=== PATIENT | female | born 1995 | race Caucasian/White ===

== ENCOUNTER 2019-02-02 03:20 | Emergency (ER) | payer MEDICAID, OTHER ==
[~2019-02-02] VITALS: Ht 162.6 cm; Wt 72.6 kg
[2019-02-02] MEDS ORDERED: diphenhydrAMINE 25 MG TAB (BENADRYL) PO ONE (03:45)
[2019-02-02] MEDS ORDERED: predniSONE 20 MG TAB PO ONE (03:45)
--- NOTE | 2019-02-02 03:49 | ED Integumentary General ---
General Chief Complaint: Bite-Animal/Human/Insect Stated Complaint: BUG BITE Nursing Triage Note: insect bite left elbow, red/swollen Source: patient Exam Limitations: no limitations History of Present Illness Date Seen by Provider: Feb 02, 2019 Time Seen by Provider: 03:37 Initial Comments Here with insect bite to the left arm just to the inside of the elbow. Had reddened area, over that and has increased in size until this morning. Onset 24 hours ago. She has used topical Benadryl cream and that has not helped a whole lot. Does have itching and swelling associated with that. Denies other symptoms. Timing/Duration: yesterday, getting worse Severity: moderate Location: extremities Possible Cause: insect bite Modifying Factors: improves with antihistamine Associated Symptoms: edema; No fever, No nasal congestion, No sore throat Allergies and Home Medications Allergies Coded Allergies: Sulfa (Sulfonamide Antibiotics) (Verified Allergy, Unknown, 02/02/19) Home Medications No Active Prescriptions or Reported Meds Patient Home Medication List Home Medication List Reviewed: Yes Review of Systems Review of Systems Constitutional: no symptoms reported EENTM: No nose congestion, No throat pain Respiratory: No cough, No short of breath, No wheezing Cardiovascular: no symptoms reported Skin: see HPI, change in color, lesions Past Srzgnzf-Gvimyn-Frhwqn Hx Past Med/Social Hx: Reviewed Nursing Past Med/Soc Hx Patient Social History Alcohol Use: Denies Use Recreational Drug Use: No Smoking Status: Never a Smoker 2nd Hand Smoke Exposure: No Recent Foreign Travel: No Contact w/Someone Who Travel: No Recent Infectious Disease Expo: No Recent Hopitalizations: No Physical Abuse: No Sexual Abuse: No Mistreated: No Fear: No Immunizations Up To Date Tetanus Booster (TDap): Unknown PED Vaccines UTD: Yes Seasonal Allergies Seasonal Allergies: No Past Medical History Surgeries: Yes (skin graft) Respiratory: No Cardiac: No Neurological: No : No (depo) Reproductive Disorders: No Genitourinary: No Gastrointestinal: No Musculoskeletal: No Endocrine: No HEENT: No Cancer: No Psychosocial: No Integumentary: No Blood Disorders: No Adverse Reaction/Blood Tranf: No Family Medical History Reviewed Nursing Family Hx No Pertinent Family Hx Physical Exam Vital Signs Vital Signs - First Documented 02/02/19 03:25 Temp 98.1 Pulse 93 Resp 18 B/P (MAP) 140/80 (100) Pulse Ox 97 O2 Delivery Room Air Capillary Refill : Less Than 3 Seconds General Appearance: WD/WN, no apparent distress Cardiovascular: regular rate, rhythm, no murmur Respiratory: lungs clear, normal breath sounds Skin: warm/dry Skin Problem Location: upper extremities Skin Problem Character: erythema, lesion, warm, other (6 x 8 cm area of erythema with 1 x 1 cm area of induration centrally without pustule or core) Progress/Results/Core Measures Results/Orders My Orders Orders - ROMMEL PACHECO MD Diphenhydramine Tablet (Benadryl Tablet) (02/02/19 03:45) Prednisone Tablet (Deltasone Tablet) (02/02/19 03:45) Vital Signs/I&O 02/02/19 03:25 Temp 98.1 Pulse 93 Resp 18 B/P (MAP) 140/80 (100) Pulse Ox 97 O2 Delivery Room Air Blood Pressure Mean: 100 Progress Progress Note : Progress Note Seen and evaluated. Prednisone 40 mg by mouth and Benadryl 25 mg by mouth. Discharged home with return precautions. Patient verbalize understanding instructions and agreement with plan. Departure Impression Primary Impression: Insect bites Qualified Codes: S50.362A - Insect bite (nonvenomous) of left elbow, initial encounter; W57.XXXA - Bitten or stung by nonvenomous insect and other nonvenomous arthropods, initial encounter Disposition: 01 HOME, SELF-CARE Condition: Stable Departure-Patient Inst. Decision time for Depature: 03:47 Referrals: [facility] (PCP/Family) Primary Care Physician Patient Instructions: Insect Bites and Stings (DC) Add. Discharge Instructions: All discharge instructions reviewed with patient and/or family. Voiced understanding. You may take Benadryl 25 mg every 6 hours as needed for pain. Alternately you may use topical Benadryl cream to the area. You may also use hydrocortisone cream twice daily to area of concern. You may take ibuprofen 400 mg every 6 hours as needed for pain. You may take Tylenol/acetaminophen 1000 mg every 6 hours as needed for pain. Return for worse pain, increasing redness, fever, breathing problems or other concerns as needed. Scripts No Active Prescriptions or Reported Meds ROMMEL PACHECO MD Feb 02, 2019 03:49
[2019-02-02 03:53] VITALS: BP 140/80
== END 2019-02-02 03:52 | disposition home or self-care (01) ==
LOC: EDUNIT# 03:20 → ER 03:22
DX: S50.362A Insect bite (nonvenomous) of left elbow, initial encounter (principal); Z88.2 Allergy status to sulfonamides; W57.XXXA Bitten or stung by nonvenomous insect and other nonvenomous arthropods, initial encounter
CPT/HCPCS: 99283

== ENCOUNTER 2020-12-02 22:22 | Emergency (ER) | payer SELFPAY ==
[~2020-12-02] VITALS: Ht 63 cm; Wt 99.6 kg
[2020-12-02 22:41] LABS: BILIRUBIN,URINE NEGATIVE (NEGATIVE); CLARITY,URINE CLEAR; COLOR,URINE YELLOW; GLUCOSE, URINE (UA) NEGATIVE (NEGATIVE); KETONES,URINE TRACE (NEGATIVE); LEUKOCYTE ESTERASE ,URINE TRACE (NEGATIVE); NITRITE,URINE NEGATIVE (NEGATIVE); PH,URINE 7.5 (5-9); PROTEIN,URINE TRACE (NEGATIVE)
--- NOTE | 2020-12-02 23:02 | ED Back Pain ---
General Chief Complaint: Back Problems Stated Complaint: BACK PAIN Nursing Triage Note: PATIENT REPORTS SHE HAS HAD A UTI OFF AND ON FOR THE LAST SEVEN MONTHS AND HAS BEEN ON MULTIPLE ABX THAT HAVEN'T HELPED. CONTINUES TO HAVE BACK PAIN Source of Information: Patient Exam Limitations: No Limitations History of Present Illness Date Seen by Provider: Dec 02, 2020 Time Seen by Provider: 22:45 Initial Comments Patient to the ER by private conveyance with her significant other chief complaint that for 1 day she has had worsening bilateral back pain, dysuria hematuria. She is on her menses. She has a history of multiple UTIs over the past several years more than 5 a year. She does not follow with urologist. No known history of kidney stones. Her back is not hurting one side worse than the other. No fevers or chills. No vomiting. Allergies and Home Medications Allergies Coded Allergies: Sulfa (Sulfonamide Antibiotics) (Verified Allergy, Unknown, 02/02/19) Home Medications Cefdinir 300 Mg Capsule, 300 MG PO BID Prescribed by: ANDREA BROWNE on 12/03/20 0048 Patient Home Medication List Home Medication List Reviewed: Yes Review of Systems Constitutional: No chills, No fever EENTM: No ear discharge, No ear pain, No blurred vision Respiratory: No cough, No phlegm Cardiovascular: No chest pain, No palpitations Gastrointestinal: No abdominal pain, No nausea Genitourinary: dysuria, frequency, hematuria : No Musculoskeletal: back pain; No joint pain All Other Systems Reviewed Negative Unless Noted: Yes Past Riunmfg-Gcdqzd-Qwghjg Hx Patient Social History Tobacco Use?: No Use of E-Cig and/or Vaping dev: Yes E-Cig or Vaping type used: Nicotine Use of E-Cig and/or Vaping Ori: Current Everyday User Substance use?: No Substance frequency: Once in a while Pt feels they are or have been: No Immunizations Up To Date Tetanus Booster (TDap): Unknown PED Vaccines UTD: Yes Influenza Vaccine Up-to-Date: Yes; Up-to-Date Seasonal Allergies Seasonal Allergies: No Past Medical History Surgeries: Yes (skin graft) Respiratory: No Cardiac: No Neurological: No Reproductive Disorders: No Genitourinary: No Gastrointestinal: No Musculoskeletal: No Endocrine: No HEENT: No Cancer: No Psychosocial: No Integumentary: No Blood Disorders: No Adverse Reaction/Blood Tranf: No Family Medical History No Pertinent Family Hx Physical Exam Vital Signs Vital Signs - First Documented 12/02/20 12/03/20 22:56 01:02 Temp 38.2 Pulse 136 Resp 22 B/P (MAP) 163/86 (111) Pulse Ox 98 O2 Delivery Room Air Capillary Refill : Less Than 3 Seconds Height, Weight, BMI Height: 5'4" Weight: 160lbs. oz. 72.141933hz; 250.00 BMI Method:Stated General Appearance: WD/WN, Mild Distress HEENT: PERRL/EOMI, Pharynx Normal; No Moist Mucous Membranes Neck: Full Range of Motion, Normal Inspection Cardiovascular: Regular Rate, Rhythm, No Edema, Tachycardia (130) Respiratory: Lungs Clear, Normal Breath Sounds, No Accessory Muscle Use, No Respiratory Distress Gastrointestinal: Normal Bowel Sounds, Non Tender, Soft Back: CVA Tenderness (L), CVA Tenderness (R) Extremity: Normal Capillary Refill, Normal Inspection, No Pedal Edema (Sy mmetric bilateral) Neurologic/Psychiatric: Alert, Oriented x3, No Motor/Sensory Deficits Skin: Normal Color, Warm/Dry Progress/Results/Core Measures Results/Orders Lab Results Laboratory Tests Test 12/02/20 22:34 12/02/20 23:34 Range/Units Urine Color YELLOW Urine Clarity CLEAR Urine pH 7.5 5-9 Urine Specific [place] 1.015 L 1.016-1.022 Urine Protein TRACE H NEGATIVE Urine Glucose (UA) NEGATIVE NEGATIVE Urine Ketones TRACE H NEGATIVE Urine Nitrite NEGATIVE NEGATIVE Urine Bilirubin NEGATIVE NEGATIVE Urine Urobilinogen 0.2 < = 1.0 MG/DL Urine Leukocyte Esterase TRACE H NEGATIVE Urine RBC (Auto) 3+ H NEGATIVE Urine RBC 10-25 H /HPF Urine WBC RARE /HPF Urine Squamous Epithelial Cells 5-10 /HPF Urine Crystals NONE /LPF Urine Bacteria TRACE /HPF Urine Casts NONE /LPF Urine Mucus LARGE H /LPF Urine Culture Indicated NO Urine Test NEGATIVE NEGATIVE White Blood Count 11.4 H 4.3-11.0 10^3/uL Red Blood Count 4.32 3.80-5.11 10^6/uL Hemoglobin 12.5 11.5-16.0 g/dL Hematocrit 39 35-52 % Mean Corpuscular Volume 91 80-99 fL Mean Corpuscular Hemoglobin 29 25-34 pg Mean Corpuscular Hemoglobin Concent 32 32-36 g/dL Red Cell Distribution Width 14.7 H 10.0-14.5 % Platelet Count 263 130-400 10^3/uL Mean Platelet Volume 10.7 9.0-12.2 fL Immature Granulocyte % (Auto) 1 % Neutrophils (%) (Auto) 86 H 42-75 % Lymphocytes (%) (Auto) 5 L 12-44 % Monocytes (%) (Auto) 8 0-12 % Eosinophils (%) (Auto) 0 0-10 % Basophils (%) (Auto) 0 0-10 % Neutrophils # (Auto) 9.8 H 1.8-7.8 10^3/uL Lymphocytes # (Auto) 0.6 L 1.0-4.0 10^3/uL Monocytes # (Auto) 0.9 0.0-1.0 10^3/uL Eosinophils # (Auto) 0.0 0.0-0.3 10^3/uL Basophils # (Auto) 0.0 0.0-0.1 10^3/uL Immature Granulocyte # (Auto) 0.1 0.0-0.1 10^3/uL Neutrophils % (Manual) 91 % Lymphocytes % (Manual) 6 % Monocytes % (Manual) 3 % Blood Morphology Comment NORMAL Sodium Level 137 135-145 MMOL/L Potassium Level 3.7 3.6-5.0 MMOL/L Chloride Level 101 98-107 MMOL/L Carbon Dioxide Level 22 21-32 MMOL/L Anion Gap 14 5-14 MMOL/L Blood Urea Nitrogen 15 7-18 MG/DL Creatinine 1.07 0.60-1.30 MG/DL Estimat Glomerular Filtration Rate > 60 BUN/Creatinine Ratio 14 Glucose Level 93 70-105 MG/DL Lactic Acid Level 0.86 0.50-2.00 MMOL/L Calcium Level 9.3 8.5-10.1 MG/DL Corrected Calcium 8.9 8.5-10.1 MG/DL Total Bilirubin 0.3 0.1-1.0 MG/DL Aspartate Amino Transf (AST/SGOT) 19 5-34 U/L Alanine Aminotransferase (ALT/SGPT) 24 0-55 U/L Alkaline Phosphatase 64 40-136 U/L Total Protein 7.7 6.4-8.2 GM/DL Albumin 4.5 3.2-4.5 GM/DL My Orders Orders - PAVAN,ANDREA J Ua Culture If Indicated (12/02/20 22:24) Hcg,Qualitative Urine (12/02/20 23:03) Ns Iv 1000 Ml (Sodium Chloride 0.9%) (12/02/20 23:15) Ceftriaxone (Rocephin) (12/02/20 23:16) Ceftriaxone (Rocephin) (12/02/20 23:16) Ed Iv/Invasive Line Start (12/02/20 23:16) Ns Iv 1000 Ml (Sodium Chloride 0.9%) (12/02/20 23:30) Ceftriaxone (Rocephin) (12/02/20 23:30) Ketorolac Injection (Toradol Injection) (12/02/20 23:30) Cbc With Automated Diff (12/02/20 23:16) Comprehensive Metabolic Panel (12/02/20 23:16) Blood Culture (12/02/20 23:16) Urine Culture (12/02/20 23:16) Ed Iv/Invasive Line Start (12/02/20 23:16) Ed Iv/Invasive Line Start (12/02/20 23:16) Vital Signs Adult Sepsis Patie Q15M (12/02/20 23:16) Remove Rings In Anticipation O (12/02/20 23:16) Lactic Acid Analyzer (12/02/20 23:16) Ns Iv 1000 Ml (Sodium Chloride 0.9%) (12/02/20 23:30) Water (Sterile) For Injection (Sterile W (12/02/20 23:17) Manual Differential (12/02/20 23:34) Ct Abd/Pelvis Wo(Kidney Stone) (12/03/20 00:01) Medications Given in ED Current Medications Medications Dose Ordered Sig/Cristian Route Start Time Stop Time Status Last Admin Dose Admin Ceftriaxone Sodium 1000 mg/ Sterile Water 10 ml @ 200 mls/hr ONCE ONCE IV 12/02/20 23:30 12/02/20 23:32 DC 12/03/20 00:07 200 MLS/HR Ketorolac Tromethamine 30 mg ONCE ONCE IVP 12/02/20 23:30 12/02/20 23:31 DC 12/02/20 23:36 30 MG Vital Signs/I&O 12/02/20 12/03/20 22:56 01:02 Temp 38.2 37.0 Pulse 136 109 Resp 22 16 B/P (MAP) 163/86 (111) 127/53 (111) Pulse Ox 98 O2 Delivery Room Air Room Air Blood Pressure Mean: 111 Progress Progress Note #1: Time: 23:38 Progress Note Initiate a septic work-up with Rocephin for presumed pyelonephritis. Tachycardia and 100.8 fever today. We will give her 2 L which is greater than 20 mL/kg based on an ideal body weight adjusted at [address] looking for stones. She says she is known to Dr. Mcrae and had a urethral dilatation 5 years ago. We will suggest she go back for reexamination with him. I believe she is on doxycycline p.o. daily for acne unknown dose. Progress Note #2: Time: 00:44 Progress Note Patient's vital signs and symptoms have significantly improved after IV fluids and Toradol. She is no longer having any pain. We did offer her a stay in the hospital for her presumed pyelonephritis/sepsis. The patient declined. We will get her set up with some outpatient IM Rocephin and a short course of cefdinir after that. Return precautions were given. Diagnostic Imaging Diagonstic Imaging: CT Plain Films/CT/US/NM/MRI: abdomen, pelvis Comments No evidence of hydronephrosis, hydroureter or obstruction of the ureter. No stones. [facility], [place] NAME: JAMIE HERNANDEZ [facility] REC#: [id number] PT STATUS: REG ER : 1995 PHYSICIAN: ANDREA BROWNE MD ADMIT DATE: 12/02/20/ER Signed Date of Exam:12/03/20 CT ABD/PELVIS WO(KIDNEY STONE) PROCEDURE: CT urinary tract, rule out kidney stone. TECHNIQUE: Multiple contiguous axial images were obtained through the abdomen and pelvis without the use of intravenous contrast. Auto Exposure Controls were utilized during the CT exam to meet ALARA standards for radiation dose reduction. INDICATION: Flank pain. COMPARISON: 05/01/2014. FINDINGS: The heart is unremarkable. The lung bases are clear. The liver, spleen, pancreas, adrenal glands, and kidneys have a normal noncontrast CT appearance. There is no pathologically enlarged mesenteric or retroperitoneal adenopathy. The bowel loops are nondilated. The appendix is visualized in the right lower quadrant mesentery normal appearance. There is no free fluid or free air. No acute osseous abnormalities. The urinary bladder is decompressed. A cystic focus is seen in the right adnexa measuring 5.4 x 4.6 cm. There is no free air, loculated collection, or adenopathy in the pelvis. IMPRESSION: 1. No evidence of renal calculi or hydronephrosis. 2. Likely ovarian cyst in the right adnexa measuring 5.4 x 4.6 cm. Recommend correlation with patient's symptoms and if indicated further evaluation with pelvic ultrasound. Dictated by: Dictated on workstation # [id number] Dict: 12/03/2049 Trans: 12/03/2052 [facility] [id number] Interpreted by: KARLOS RAE DO Electronically signed by: KARLOS RAE DO 12/03/2052 Reviewed: Reviewed [facility] Study, Reviewed by Pa Departure Impression Primary Impression: Urinary tract infection Qualified Codes: N30.01 - Acute cystitis with hematuria Additional Impression: Sepsis Qualified Codes: A41.9 - Sepsis, unspecified organism Disposition: HOME, SELF-CARE Condition: Stable Departure-Patient Inst. Decision time for Depature: 00:45 Referrals: [facility] [place] Primary Care Physician Patient Instructions: Kidney Infection (DC) Add. Discharge Instructions: Drink lots of fluids. Tylenol and ibuprofen as necessary for pain and fever. Promptly return to the ER if your symptoms are not improving. 12/03/2020 get a shot of Rocephin outpatient afternoon by calling the number on the top of your outpatient order sheet. Start cefdinir 1 capsule twice a day for the next 5 days on 12/04/2020. Probiotics 1 capsule twice a day for the next week to prevent diarrhea. Stop taking the doxycycline for your skin until your symptoms farida. Call Dr. Lopez, urology to request outpatient consultation for your continued urinary tract infection symptoms. All discharge instructions reviewed with patient and/or family. Voiced understanding. Scripts Cefdinir (Cefdinir) 300 Mg Capsule 300 MG PO BID for 5 Days, #10 CAP 0 Refills Prov: ANDREA BROWNE 12/03/20 ANDREA BROWNE Dec 02, 2020 23:02
[2020-12-02 23:05] LABS: BACTERIA,URINE TRACE /HPF; WBC,URINE RARE /HPF
[2020-12-02] MEDS ORDERED: NS IV 1000 ML 1,000 ML ONE (23:15)
[2020-12-02] MEDS ORDERED: cefTRIAXone 1,000 MG VIAL ONE ×2 (23:16)
[2020-12-02] MEDS ORDERED: WATER (STERILE) FOR INJECTION 10 ML ONE (23:17)
[2020-12-02] MEDS ORDERED: KETOROLAC 30 MG/ML VIAL IVP ONE (23:30)
[2020-12-02] MEDS ORDERED: NS IV 1000 ML 1,000 ML IV SCH ×2 (23:30)
[2020-12-02] MEDS ORDERED: cefTRIAXone 1,000 MG in WATER (STERILE) FOR INJECTION 10 ML IV ONE (23:30)
[2020-12-02 23:50] LABS: BASOPHILS % (AUTO) 0 % (0-10); EOSINOPHILS % (AUTO) 0 % (0-10); HEMATOCRIT 39 % (35-52); HEMOGLOBIN 12.5 g/dL (11.5-16.0); LYMPHOCYTES # (AUTO) 0.6 10^3/uL (1.0-4.0); LYMPHOCYTES % (AUTO) 5 % (12-44); MEAN CORPUSCULAR HEMOGLOBIN 29 pg (25-34); MEAN CORPUSCULAR HGB CONC 32 g/dL (32-36); MEAN CORPUSCULAR VOLUME 91 fL (80-99); MEAN PLATELET VOLUME 10.7 fL (9.0-12.2); MONOCYTES # (AUTO) 0.9 10^3/uL (0.0-1.0); MONOCYTES % (AUTO) 8 % (0-12); NEUTROPHILS # (AUTO) 9.8 10^3/uL (1.8-7.8); NEUTROPHILS % (AUTO) 86 % (42-75); PLATELET COUNT 263 10^3/uL (130-400); WHITE BLOOD COUNT 11.4 10^3/uL (4.3-11.0)
[2020-12-02 23:56] LABS: ALBUMIN 4.5 GM/DL (3.2-4.5)
[2020-12-02 23:57] LABS: CHLORIDE 101 MMOL/L (98-107); POTASSIUM 3.7 MMOL/L (3.6-5.0); SODIUM 137 MMOL/L (135-145)
[2020-12-02 23:58] LABS: CALCIUM 9.3 MG/DL (8.5-10.1)
[2020-12-02 23:59] LABS: GLUCOSE 93 MG/DL (70-105); TOTAL PROTEIN 7.7 GM/DL (6.4-8.2)
[2020-12-03] LABS: CARBON DIOXIDE 22 MMOL/L (21-32)
[2020-12-03 00:01] LABS: BILIRUBIN,TOTAL 0.3 MG/DL (0.1-1.0)
[2020-12-03 00:02] LABS: ALKALINE PHOSPHATASE 64 U/L (40-136)
[2020-12-03 00:03] LABS: CREATININE SERUM 1.07 MG/DL (0.60-1.30); GFR ESTIMATED > 60
[2020-12-03 00:04] LABS: BUN/CREATININE RATIO 14
[2020-12-03 00:05] LABS: ALANINE AMINOTRANSFERASE 24 U/L (0-55)
[2020-12-03 00:19] LABS: LYMPHOCYTES % (MANUAL) 6 %; MONOCYTES % (MANUAL) 3 %; NEUTROPHILS % (MANUAL) 91 %; RBC MORPH NORMAL
[2020-12-03] MEDS ORDERED: CEFD300C3 PO (00:48)
--- NOTE | 2020-12-03 00:55 | Diagnostic Imaging Report ---
PROCEDURE: CT urinary tract, rule out kidney stone. TECHNIQUE: Multiple contiguous axial images were obtained through the abdomen and pelvis without the use of intravenous contrast. Auto Exposure Controls were utilized during the CT exam to meet ALARA standards for radiation dose reduction. INDICATION: Flank pain. COMPARISON: 05/01/2014. FINDINGS: The heart is unremarkable. The lung bases are clear. The liver, spleen, pancreas, adrenal glands, and kidneys have a normal noncontrast CT appearance. There is no pathologically enlarged mesenteric or retroperitoneal adenopathy. The bowel loops are nondilated. The appendix is visualized in the right lower quadrant mesentery normal appearance. There is no free fluid or free air. No acute osseous abnormalities. The urinary bladder is decompressed. A cystic focus is seen in the right adnexa measuring 5.4 x 4.6 cm. There is no free air, loculated collection, or adenopathy in the pelvis. IMPRESSION: 1. No evidence of renal calculi or hydronephrosis. 2. Likely ovarian cyst in the right adnexa measuring 5.4 x 4.6 cm. Recommend correlation with patient's symptoms and if indicated further evaluation with pelvic ultrasound. Dictated by: Dictated on workstation # [id number]
[2020-12-03 01:02] VITALS: BP 127/53
== END 2020-12-03 01:02 | disposition home or self-care (01) ==
LOC: EDUNIT# 22:22 → ER 22:24
DX: N39.0 Urinary tract infection, site not specified (principal); A41.9 Sepsis, unspecified organism; F17.200 Nicotine dependence, unspecified, uncomplicated
CPT/HCPCS: 36415; 74176; 80053; 81000; 83605; 84703; 85007; 85027; 87040; 87088

== ENCOUNTER 2020-12-03 15:39 | Outpatient (CLI) | payer SELFPAY ==
[~2020-12-03] VITALS: Ht 162.6 cm; Wt 99.6 kg
[~2020-12-03 15:39] MED LIST: CEFD300C3 PO
[2020-12-03] MEDS ORDERED: LIDOCAINE 1% INJ 20 ML 20 ML VIAL ONE (15:54)
[2020-12-03] MEDS ORDERED: cefTRIAXone 1,000 MG VIAL ONE (15:54)
[2020-12-03 16:08] VITALS: BP 147/102
== END 2020-12-03 16:08 | disposition home or self-care (01) ==
LOC: SDC 15:39
PROVIDERS: ATTEND Emergency Medicine
DX: N12 Tubulo-interstitial nephritis, not specified as acute or chronic (principal)
CPT/HCPCS: 96372

== ENCOUNTER → 2022-11-29 | Outpatient (CLI) | payer OTHER ==
--- NOTE | 2022-11-29 12:31 | Diagnostic Imaging Report ---
INDICATION: Supervision of normal . Anatomy survey. TECHNIQUE: Multiple real-time grayscale images were obtained over the gravid uterus. COMPARISON: None FINDINGS: A single live intrauterine gestation is visualized in variable presentation. heart tones measure 150 bpm. The placenta is anterior and not low lying. The cervix is closed and measures 5.3 cm. The JOSE is normal measuring 17 cm. The kidneys, bladder, stomach, brain, four-chamber heart, three-vessel cord, spine, and cord insertion are visualized and have a normal appearance. Biometrical measurements are as follows: Biparietal 4.89 cm, age 20 weeks 6 days. Head circumference 18.48 cm, age 20 weeks 6 days. Abdominal circumference 15.87 cm, age 21 weeks 0 days. Femur length 3.45 cm, age 21 weeks 0 days. Sonographic estimate age: 21 weeks 0 days. Sonographic estimated date of delivery: 04/11/2023. Estimated Weight: 386 gm (+/- 57 gm). LMP percentile: 86%. heart rate: 150 beats per minute. number: 1 of 1. IMPRESSION: 1. Single live intrauterine gestation measuring 21 weeks 0 days with an estimated due date of 04/11/2023. These are within range with the clinical dates. Recommend follow-up as indicated. 2. Unremarkable anatomy scan. Dictated by: Dictated on workstation # [id number]
== END ==
LOC: RAD 09:43
PROVIDERS: ATTEND Nurse Practitioner Women's Health
DX: Z34.92 Encounter for supervision of normal pregnancy, unspecified, second trimester (principal); Z3A.21 21 weeks gestation of pregnancy
CPT/HCPCS: 76805

== ENCOUNTER → 2023-03-20 | Outpatient (CLI) | payer OTHER ==
[~2023-03-20] VITALS: Ht 165.1 cm; Wt 112.0 kg
[~2023-03-20] MED LIST changes: +EPINEPHrine INJECTION 1 MG/ML AMP IM PRN; +HYDROCORTISONE INJECTION 100 MG/2 ML VIAL IV PRN; +IRON DEXTRAN 1,000 MG/NS 250 ML IVPB IV ONE; +IRON DEXTRAN 25 MG/NS 6.25 ML TOTAL VOLUME IV ONE; +RT-ALBUTEROL SULF 2.5 MG/3 ML PRE-MIX VIAL IH PRN; +diphenhydrAMINE INJ 50 MG/ML VIAL IV PRN
[2023-03-20 12:07] VITALS: BP 129/79
[2023-03-20 13:33] VITALS: BP 129/79
== END ==
LOC: SDC 11:45
PROVIDERS: ATTEND Obstetrics & Gynecology
DX: D64.9 Anemia, unspecified (principal)
CPT/HCPCS: 96365

== ENCOUNTER 2023-04-23 19:00 | Inpatient (IN) | payer OTHER ==
[~2023-04-23] VITALS: Ht 162.6 cm; Wt 115.7 kg
[~2023-04-23 19:00] MED LIST changes: -EPINEPHrine INJECTION 1 MG/ML AMP IM PRN; -HYDROCORTISONE INJECTION 100 MG/2 ML VIAL IV PRN; -IRON DEXTRAN 1,000 MG/NS 250 ML IVPB IV ONE; -IRON DEXTRAN 25 MG/NS 6.25 ML TOTAL VOLUME IV ONE; -RT-ALBUTEROL SULF 2.5 MG/3 ML PRE-MIX VIAL IH PRN; -diphenhydrAMINE INJ 50 MG/ML VIAL IV PRN
--- OUTSIDE RECORDS SUMMARY | 2023-04-23 19:07 | XMS REPORT ---
Author Author [facility] Address Unknown Phone Unavailable Care Team Providers Care Blood Bank Calendar Control Clerk Name Role Phone ROBB WHITE Unavailable PROBLEMS Type Condition ICD9-CM Code ICD33-CH Code Onset Dates Condition Status W/U Status Risk SNOMED Code Notes Problem Major depressive disorder with single episode, remission status unspecified F32.9 confirmed 19352124 Problem BMI 37.0-37.9, adult Z68.37 confirmed [id number] Problem Dysuria R30.0 confirmed [id number] Problem Nausea R11.0 confirmed [id number] ALLERGIES Allergen (clinical drug ingredient) Drug/Non Drug Allergy documented on EMR Reaction Allergy Type Onset Date Status Tetanus Toxoid Adsorbed swelling, redness Drug Allergy Active ENCOUNTERS from 1997 to 2023-04-16 Encounter Location Date Provider Diagnosis [facility] [address] [place] [address] Mar, ROBB WHITE UTI symptoms R39.9 IMMUNIZATIONS Vaccine Route Administration Date Status DTP Unknown September 14, 1998 Administered DTP Unknown 1997 Administered DTP Unknown 1997 Administered PRIVATE PROQUAD (MMR/VARICELLA) SC Subcutaneous October [id number] Administered Hib 4 dose schedule Unknown September 14, 1998 Admini stered Hib 4 dose schedule Unknown 1997 Administ ered Hib 4 dose schedule Unknown 1997 Administ ered infanrix dtap (history) Unknown 1997 Ad ministered OPV Unknown September 14, 1998 Administered Novel [id number], nasal Unknown Mar 25 09 Administered hepatitis b pediatric (history) Unknown 1997 Administered hepatitis b pediatric (history) Unknown Apr 21 997 Administered mmr-II (history) Unknown September 14, 1998 Administe denita polio ipv (history) Unknown 1997 Administ cuco polio ipv (history) Unknown 1997 Administ cuco comvax hib/hep b (history) Unknown 1997 Administered SOCIAL HISTORY Sex Assigned At : Social History Observation Description Sex Assigned At Unknown Alcohol Screen (Audit-C) Question Answer Notes Did you have a drink contain ing alcohol in the past year? Yes Points 5 Interpretation Positive How often did you have 6 or more drinks on one occasion in the past year? Less than monthly (1 point) How many drinks did you have on a typical day when you were drinking in the past year? 3 or 4 (1 point) How often did you have a dri nk containing alcohol in the past year? Two to three times per week (3 points) Sexual History Question Answer Notes Had sex in the past 12 months (vaginal, oral, or anal)? Yes Have you ever had a Sexually transmitted disease ? No with Men only Use protection? No PHQ2 Question Answer Notes In the last 2 weeks, how oft en have you had little interest or pleasure in doing things? Not at all In the last 2 weeks, how oft en have you been feeling down, depressed, or hopeless? Not at all Total PHQ2 Score 0 Tobacco use other than smoking: Question Answer Notes Are you an other tobacco user? Yes REASON FOR REFERRAL No Information VITAL SIGNS Height 64 in Mar, Weight 215.5 lbs Mar, Weight-kg 97.75 kg Mar, Temperature 97.7 degrees Fahrenheit Mar, Heart Rate 93 bpm Mar, Respiratory Rate 20 bpm Mar, Oximetry 100 % Mar, BMI 36.99 kg/m2 Mar, Blood pressure systolic 126 mmHg Mar, Blood pressure diastolic 72 mmHg Mar, MEDICATIONS No Known Medications REASON FOR VISIT possible uti, "gets them often", frequent urination, burning, Azo-started last night [id number] MEDICAL (GENERAL) HISTORY Type Description Date Medical History Depression Medical History 21 weeks Surgical History No know Surgical history Hospitalization History UTI(sepsis) 12/03/19 21 MENTAL STATUS No Information ASSESSMENTS Encounter Date Diagnosis Assessment Notes Treatment Notes Treatment Clinical Notes Mar, UTI symptoms (ICD-10 - R39.9) Mar, Other Medications as directed, supportive care and monitoring, rest as able, push fluids to maintain hydration. Office visit it not improving.Patient verbalized understanding of above instructions. , Urinary Tract Infection (UTI) in Women: Care Instructions material was published PLAN OF TREATMENT Next Appt Details if not improving with PCP or reg follow up Reason: Insurance Providers Payer Name Payer Address Payer Phone Insured Name Patient Relationship to Insured Coverage Start Date Coverage End Date Subscriber Number Group Number [employer] [address] [address] [facility] [id number] [address] Self - patient is the insured [id number] 01 MEDICATIONS ADMINISTERED Medication Instructions Date of Administration Dosag e DEPO PROVERA (150 MG/ML) Jan, 150 mg DEPO PROVERA (150 MG/ML) Jan, 150 mg DEPO PROVERA (150 MG/ML) Feb, 150 mg DEPO PROVERA (150 MG/ML) May, 150 mg DEPO PROVERA (150 MG/ML) Apr, 150 mg DEPO PROVERA (150 MG/ML) Nov, 150 mg DEPO PROVERA (150 MG/ML) Apr, 150 mg DEPO PROVERA (150 MG/ML) Feb, 150 mg DEPO PROVERA (150 MG/ML) Jul, 150 mg DEPO PROVERA (150 MG/ML) Dec, 150 mg DEPO PROVERA (150 MG/ML) Oct, 150 mg DEPO PROVERA (150 MG/ML) Jul, 150 mg DEPO PROVERA (150 MG/ML) Oct, 150 mg DEPO PROVERA (150 MG/ML) Jul, 150 mg
--- OUTSIDE RECORDS SUMMARY | 2023-04-23 19:07 | XMS REPORT ---
Author Author [facility] ter [facility] Address Unknown Phone Unavailable Care Team Providers Care Ice Guard Tester Name Role Phone DOT SANCHEZ Unavailable PROBLEMS Type Condition ICD9-CM Code [id number] Code Onset Dates Condition Status W/U Status Risk SNOMED Code Notes Problem Major depressive disorder with single episode, remission status unspecified F32.9 confirmed [id number] Problem BMI 37.0-37.9, adult Z68.37 confirmed 326568434 Problem Dysuria R30.0 confirmed [id number] Problem Nausea R11.0 confirmed [id number] ALLERGIES Allergen (clinical drug ingredient) Drug/Non Drug Allergy documented on EMR Reaction Allergy Type Onset Date Status Tetanus Toxoid Adsorbed swelling, redness Drug Allergy Active ENCOUNTERS from 1997 to 2023-01-18 Encounter Location Date Provider Diagnosis [facility] [address] [facility] [id number] [address] Jan, DOT SANCHEZ Dysuria R30.0 IMMUNIZATIONS Vaccine Route Administration Date Status Hib 4 dose schedule Unknown 1997 Administ ered DTP Unknown September 14, 1998 Administered DTP Unknown 1997 Administered DTP Unknown 1997 Administered PRIVATE PROQUAD (MMR/VARICELLA) SC Subcutaneous October 262018 Administered Hib 4 dose schedule Unknown September 14, 1998 Admini stered Hib 4 dose schedule Unknown 1997 Administ ered mmr-II (history) Unknown September 14, 1998 Administe red OPV Unknown September 14, 1998 Administered Novel Qbyignbig-[id number], nasal Unknown Mar 25 09 Administered hepatitis b pediatric (history) Unknown 1997 Administered hepatitis b pediatric (history) Unknown Apr 21 997 Administered infanrix dtap (history) Unknown 1997 Ad ministered comvax hib/hep b (history) Unknown 1997 Administered polio ipv (history) Unknown 1997 Administ cuco polio ipv (history) Unknown 1997 Administ ereleif SOCIAL HISTORY Sex Assigned At : Social [...] No Information VITAL SIGNS Height 64 in Jan, Weight 218 lbs Jan, Weight-kg 98.88 kg Jan, Temperature 98 degrees Fahrenheit Jan, Heart Rate 90 bpm Jan, Respiratory Rate 20 bpm Jan, Oximetry 98 % Jan, BMI 37.42 kg/m2 Jan, Blood pressure systolic 130 mmHg Jan, Blood pressure diastolic 68 mmHg Jan, MEDICATIONS No Known Medications REASON FOR VISIT Pt stated she has "bladder pain" "feels like i"m not emptying my bladder".Pt stated she feels like she has uti's more often and is concerned about it. Pt stated that she hasburning at the end of her urine stream. [facility]O MEDICAL (GENERAL) HISTORY Type Description Date Medical History Depression Medical History 21 weeks Surgical History No know Surgical history Hospitalization History UTI(sepsis) 12/03/19 21 MENTAL STATUS No Information ASSESSMENTS Encounter Date Diagnosis Assessment Notes Treatment Notes Treatment Clinical Notes Jan, Dysuria (ICD-10 - R30.0) dysuria is a common symptom of a urinary tract infection or other urinary problems. The bladder may become inflamed. This can cause pain when the bladder fills and empties. You may also feel pain if the tube that carries urine from the bladder to the outside of the body (urethra) gets irritated or infected. Sometimes the pain can be caused by things other than an infection. The urethra can be irritated by soaps, perfumes, or foreign objects in the urethra. Kidney stones can cause pain when they pass through the urethra. The cause may be hard to find. You may need tests. Treatment for painful urination depends on the cause. Follow-up care is a zheng part of your treatment and safety. Be sure to make and go to all appointments, and call your doctor if you are having problems. It's also a good idea to know your test results and keep a list of the medicines you take. Drink extra water for the next day or two. This will help make the urine less concentrated. (If you have kidney, heart, or liver disease and have to limit fluids, talk with your doctor before you increase the amount of fluids you drink.) Avoid drinks that are carbonated or have caffeine. They can irritate the bladder. Urinate often. Try to empty your bladder each time. Urinate right after you have sex. After going to the bathroom, wipe from front to back. Avoid douches, bubble baths, and feminine hygiene sprays. And avoid other feminine hygiene products that have deodorants., Painful Urination (Dysuria): Care Instructions material was published Will send urine for culture and send off for other STIs Jan, Other Medications as prescribed, rest as able, push fluids, call/return if symptoms worsen or do not improve. Pediatric UTI's: Avoid giving little girls bubble-baths or allowing her to sit in soapy bath water for very long. It's ok for her to take a bath in plain water, but she should play in the tub first, and wait until the end of the bath before using soap or shampoo, then get out of the tub as soon as possible. Encourage wiping "[id number]-[id number]-[id number]". Encourage to sit on the toilet with her legs spread wide open, to avoid small amounts of urine becoming trapped between the labia and causing irritation. Push fluids to maintain hydration and flush urinary track. Adult UTI: 1. Avoid bubble baths. Voiding after sexual intercourse for adult females will assist to flush potential bacteria from the urinary tract. Proper bathroom hygein wiping front to bacl. Maintain proper hydration with lots of water daily avoiding sodas as able. Pushing fluids helps to maintain hydration and flush urinary system. Medications as directed, supportive care and monitoring, rest as able, push fluids to maintain hydration. Office visit it not improving. Patient verbalized understanding of above instructions. PLAN OF TREATMENT Treatment Notes Assessment Notes Clinical Notes Dysuria dysuria is a common symptom of a urinary tract infection or other urinary problems. The bladder may become inflamed. This can cause pain when the bladder fills and empties. You may also feel pain if the tube that carries urine from the bladder to the outside of the body (urethra) gets irritated or infected. Sometimes the pain can be caused by things other than an infection. The urethra can be irritated by soaps, perfumes, or foreign objects in the urethra. Kidney stones can cause pain when they pass through the urethra. The cause may be hard to find. You may need tests. Treatment for painful urination depends on the cause. Follow-up care is a zheng part of your treatment and safety. Be sure to make and go to all appointments, and call your doctor if you are having problems. It's also a good idea to know your test results and keep a list of the medicines you take. Drink extra water for the next day or two. This will help make the urine less concentrated. (If you have kidney, heart, or liver disease and have to limit fluids, talk with your doctor before you increase the amount of fluids you drink.) Avoid drinks that are carbonated or have caffeine. They can irritate the bladder. Urinate often. Try to empty your bladder each time. Urinate right after you have sex. After going to the bathroom, wipe from front to back. Avoid douches, bubble baths, and feminine hygiene sprays. And avoid other feminine hygiene products that have deodorants., Painful Urination (Dysuria): Care Instructions material was published Will send urine for culture and send off for other STIs Future Test Test Name Order Date UA LONG DIP (IN HOUSE) 20210203 TEST, URINE (IN HOUSE) 9 HIV Screening (STATE) 20210203 HSV 1/2 IGG (6482) [id number] SYPHILIS (STATE) 34870304 TRICHOMONAS (IN HOUSE) [id number] BACTERIAL VAGINOSIS (IN HOUSE) 20210203 HEPATITIS PANEL, GENERAL 20210203 Next Appt Details if not improving or regular follow up with pcp . if not improving with PCP or reg follow up Reason: Insurance Providers Payer Name Payer Address Payer Phone Insured Name Patient Relationship to Insured Coverage Start Date Coverage End Date Subscriber Number Group Number AETNA [address] [address] [facility] [id number] Stefania Ac Self - patient is the insured [id number] MEDICATIONS ADMINISTERED Medication Instructions Date of Administration Dosag e DEPO PROVERA (150 MG/ML) Jul, 150 mg DEPO PROVERA (150 MG/ML) Dec, 150 mg DEPO PROVERA (150 MG/ML) May, 150 mg DEPO PROVERA (150 MG/ML) Feb, 150 mg DEPO PROVERA (150 MG/ML) Feb, 150 mg DEPO PROVERA (150 MG/ML) Jul, 150 mg DEPO PROVERA (150 MG/ML) Apr, 150 mg DEPO PROVERA (150 MG/ML) Jan, 150 mg DEPO PROVERA (150 MG/ML) Jan, 150 mg DEPO PROVERA (150 MG/ML) Oct, 150 mg DEPO PROVERA (150 MG/ML) Jul, 150 mg DEPO PROVERA (150 MG/ML) Oct, 150 mg DEPO PROVERA (150 MG/ML) Apr, 150 mg DEPO PROVERA (150 MG/ML) Nov, 150 mg
--- OUTSIDE RECORDS SUMMARY | 2023-04-23 19:07 | XMS REPORT ---
Author Author [facility] ter [facility] ter [facility] Address Unknown Phone Unavailable Care Team Providers Care Roll Sheeting Cutter Name Role Phone DOT SANCHEZ Unavailable PROBLEMS Type Condition ICD9-CM Code [id number] Code Onset Dates Condition Status W/U Status Risk SNOMED Code Notes Problem Major depressive disorder with single episode, remission status unspecified F32.9 confirmed [id number] Problem BMI 37.0-37.9, adult Z68.37 confirmed 168617948 Problem Dysuria R30.0 confirmed 68907243 Problem Nausea R11.0 confirmed [id number] ALLERGIES Allergen (clinical drug ingredient) Drug/Non Drug Allergy documented on EMR Reaction Allergy Type Onset Date Status Tetanus Toxoid Adsorbed swelling, redness Drug Allergy Active ENCOUNTERS from 1997 to 2023-01-22 Encounter Location Date Provider Diagnosis [facility] [address] [facility] [id number] [address] Jan, DOT SANCHEZ IMMUNIZATIONS Vaccine Route Administration Date Status polio ipv (history) Unknown 1997 Administ ered comvax hib/hep b (history) Unknown 1997 Administered infanrix dtap (history) Unknown 1997 Ad ministered PRIVATE PROQUAD (MMR/VARICELLA) SC Subcutaneous October 262018 Administered hepatitis b pediatric (history) Unknown Apr 21 997 Administered mmr-II (history) Unknown September 14, 1998 Administe red polio ipv (history) Unknown 1997 Administ ered DTP Unknown 1997 Administered hepatitis b pediatric (history) Unknown 1997 Administered Novel Sskkkggqv-J2B0-17, nasal Unknown Mar 25 09 Administered OPV Unknown September 14, 1998 Administered Hib 4 dose schedule Unknown September 14, 1998 Admini stered Hib 4 dose schedule Unknown 1997 Administ ered Hib 4 dose schedule Unknown 1997 Administ ered DTP Unknown September 14, 1998 Administered DTP Unknown 1997 Administered SOCIAL HISTORY Sex Assigned [...] user? Yes REASON FOR REFERRAL No Information REASON FOR VISIT Lab results MEDICAL (GENERAL) HISTORY Type Description Date Medical History Depression Medical History 21 weeks Surgical History No know Surgical history Hospitalization History UTI(sepsis) 12/03/19 21 MENTAL STATUS No Information PLAN OF TREATMENT No Information Insurance Providers Payer Name Payer Address Payer Phone Insured Name Patient Relationship to Insured Coverage Start Date Coverage End Date Subscriber Number Group Number AETNA [address] [address] [facility] [id number] Stefania Ac Self - patient is the insured [id number] MEDICATIONS ADMINISTERED Medication Instructions Date of Administration Dosag e DEPO PROVERA (150 MG/ML) Jan, 150 mg DEPO PROVERA (150 MG/ML) Oct, 150 mg DEPO PROVERA (150 MG/ML) Apr, 150 mg DEPO PROVERA (150 MG/ML) 05 Jan, 2017 150 mg DEPO PROVERA (150 MG/ML) Jul, 150 mg DEPO PROVERA (150 MG/ML) Nov, 150 mg DEPO PROVERA (150 MG/ML) 20 Feb, 2015 150 mg DEPO PROVERA (150 MG/ML) 18 May, 2015 150 mg DEPO PROVERA (150 MG/ML) 04 Feb, 2016 150 mg DEPO PROVERA (150 MG/ML) Oct, 150 mg DEPO PROVERA (150 MG/ML) Dec, 150 mg DEPO PROVERA (150 MG/ML) Jul, 150 mg DEPO PROVERA (150 MG/ML) 30 Jul, 2016 150 mg DEPO PROVERA (150 MG/ML) Apr, 150 mg
--- OUTSIDE RECORDS SUMMARY | 2023-04-23 19:07 | XMS REPORT ---
Author Author [facility] ter [facility] ter [facility] Address Unknown Phone Unavailable Care Team Providers Care Log Chain Worker Name Role Phone LUCRECIA CARROLL Unavailable PROBLEMS Type Condition ICD9-CM Code UXW98-[id number] Code Onset Dates Condition Status W/U Status Risk SNOMED Code Notes Problem Major depressive disorder with single episode, remission status unspecified F32.9 confirmed 69808438 Problem BMI 37.0-37.9, adult Z68.37 confirmed 695846409 Problem Dysuria R30.0 confirmed 77262064 Problem Nausea R11.0 confirmed [id number] ALLERGIES Allergen (clinical drug ingredient) Drug/Non Drug Allergy documented on EMR Reaction Allergy Type Onset Date Status Tetanus Toxoid Adsorbed swelling, redness Drug Allergy Active ENCOUNTERS from 1997 to 2022-11-18 Encounter Location Date Provider Diagnosis [facility] IN [facility] [address] [facility] [id number] [address] Nov, LUCRECIA CARROLL Cough R05 IMMUNIZATIONS Vaccine Route Administration Date Status polio ipv (history) Unknown 1997 Administ ered polio ipv (history) Unknown 1997 Administ ered comvax hib/hep b (history) Unknown 1997 Administered infanrix dtap (history) Unknown 1997 Ad ministered hepatitis b pediatric (history) Unknown 1997 Administered hepatitis b pediatric (history) Unknown Apr 21 997 Administered mmr-II (history) Unknown September 14, 1998 Administe red DTP Unknown 1997 Administered Novel Aamdzpade-T1P0-97, nasal Unknown Mar 25 09 Administered OPV Unknown September 14, 1998 Administered PRIVATE PROQUAD (MMR/VARICELLA) SC Subcutaneous October [...] user? Yes REASON FOR REFERRAL No Information MEDICATIONS Medication SIG (Take, Route, Fr equency, Duration) Notes Start Date End Date Status Cephalexin 500 MG 1 capsule Orally thr ee times a day for 7 days Oct, Active REASON FOR VISIT symptoms- Boost mobile- red [employer] 200 MEDICAL (GENERAL) HISTORY Type Description Date Medical History Depression Surgical History No know Surgical history Hospitalization History UTI(sepsis) 12/03/19 21 MENTAL STATUS No Information ASSESSMENTS Encounter Date Diagnosis Assessment Notes Treatment Notes Treatment Clinical Notes Nov, Cough (ICD-10 - R05) PLAN OF TREATMENT Medication Medication Name Sig Start Date Stop Date Cephalexin 500 MG 1 capsule Orally thr ee times a day for 7 days Oct, Insurance Providers Payer Name Payer Address Payer Phone Insured Name Patient Relationship to Insured Coverage Start Date Coverage End Date Subscriber Number Group Number AETNA [address] [address] [place] [id number] Stefania Ac ida Tom Self - patient is the insured [id number] 1 [id number] 01 MEDICATIONS ADMINISTERED Medication Instructions Date of Administration Dosag e DEPO PROVERA (150 MG/ML) May, 150 mg DEPO PROVERA (150 MG/ML) Feb, 150 mg DEPO PROVERA (150 MG/ML) Jan, 150 mg DEPO PROVERA (150 MG/ML) Apr, 150 mg DEPO PROVERA (150 MG/ML) Feb, 150 mg DEPO PROVERA (150 MG/ML) Jul, 150 mg DEPO PROVERA (150 MG/ML) Jan, 150 mg DEPO PROVERA (150 MG/ML) 17 Apr, 2018 150 mg DEPO PROVERA (150 MG/ML) Oct, 150 mg DEPO PROVERA (150 MG/ML) Dec, 150 mg DEPO PROVERA (150 MG/ML) Oct, 150 mg DEPO PROVERA (150 MG/ML) 30 Jul, 2016 150 mg DEPO PROVERA (150 MG/ML) Jul, 150 mg DEPO PROVERA (150 MG/ML) Nov, 150 mg
--- OUTSIDE RECORDS SUMMARY | 2023-04-23 19:07 | XMS REPORT ---
Author Author [facility] ter [facility] Address Unknown Phone Unavailable Care Team Providers Care Infrastructure Director Name Role Phone DOT SANCHEZ Unavailable PROBLEMS Type Condition ICD9-CM Code ZGY62-BG Code Onset Dates Condition Status W/U Status Risk SNOMED Code Notes Problem Major depressive disorder with single episode, remission status unspecified F32.9 confirmed [id number] Problem BMI 37.0-37.9, adult Z68.37 confirmed 132996124 Problem Dysuria R30.0 confirmed 13173239 Problem Nausea R11.0 confirmed [id number] ALLERGIES Allergen (clinical drug ingredient) Drug/Non Drug Allergy documented on EMR Reaction Allergy Type Onset Date Status Tetanus Toxoid Adsorbed swelling, redness Drug Allergy Active ENCOUNTERS from 1997 to 2022-12-03 Encounter Location Date Provider Diagnosis [facility] [address] [facility] [id number] [address] Dec, DOT SANCHEZ Acute cystitis without hematuria N30.00 IMMUNIZATIONS Vaccine Route Administration Date Status polio ipv (history) Unknown 1997 Administ ered comvax hib/hep b (history) Unknown 1997 Administered infanrix dtap (history) Unknown 1997 Ad ministered PRIVATE PROQUAD (MMR/VARICELLA) SC Subcutaneous October 262018 Administered hepatitis b pediatric (history) Unknown Apr 21 99 Administered mmr-II (history) Unknown September 14, 1998 Administe red polio ipv (history) Unknown 1997 Administ ered DTP Unknown 1997 Administered hepatitis b pediatric (history) Unknown 1997 Administered Novel Lhpddsdcd-X6K9-45, nasal Unknown Mar 25 09 Administered OPV [...] No Information VITAL SIGNS Height 64 in Dec, Weight 214.9 lbs Dec, Weight-kg 97.48 kg Dec, Temperature 98.1 degrees Fahrenheit Dec, Heart Rate 116 bpm Dec, Respiratory Rate 18 bpm Dec, Oximetry 100 % Dec, BMI 36.88 kg/m2 Dec, Blood pressure systolic 138 mmHg Dec, Blood pressure diastolic 80 mmHg Dec, MEDICATIONS Medication SIG (Take, Route, Fr equency, Duration) Notes Start Date End Date Status Cephalexin 500 MG 1 capsule Orally thr ee times a day for 7 days Oct, Active REASON FOR VISIT UTI symptoms--pt stated that she may have a bladder infection, holder to pee and when her bladder gets full it hurts. Pt stated she was in the hospital 3 weeks ago for sepsis from a UTI--Mariano reeves MA verbally verified MEDICAL (GENERAL) HISTORY Type Description Date Medical History Depression Surgical History No know Surgical history Hospitalization History UTI(sepsis) 12/03/19 21 MENTAL STATUS No Information ASSESSMENTS Encounter Date Diagnosis Assessment Notes Treatment Notes Treatment Clinical Notes Dec, Acute cystitis without hematuria (ICD-10 - N30.00) It is important to give antibiotics and other medications as prescribed, push fluids and call the office with worsening symptoms or fever. UTI may be prevented by good hygiene such as wiping from front to back( women), washing the area in warm water 2 times per day, frequent voiding (every 2-3hrs) and drinking plenty of fluids. Avoid frequent "bubble baths", scented soaps, etc. Void after intercourse. Limit caffeine and drink at least 6-8 glasses of water per day., Urinary Tract Infection (UTI) in Women: Care Instructions material was published Dec, Other Medications as directed, supportive care and monitoring, rest as able, push fluids to maintain hydration. Office visit it not improving. Patient verbalized understanding of above instructions. PLAN OF TREATMENT Medication Medication Name Sig Start Date Stop Date Cephalexin 500 MG 1 capsule Orally thr ee times a day for 7 days Oct, Treatment Notes Assessment Notes Clinical Notes Acute cystitis without hematuria It is i mportant to give antibiotics and other medications as prescribed, push fluids and call the office with worsening symptoms or fever. UTI may be prevented by good hygiene such as wiping from front to back( women), washing the area in warm water 2 times per day, frequent voiding (every 2-3hrs) and drinking plenty of fluids. Avoid frequent "bubble baths", scented soaps, etc. Void after intercourse. Limit caffeine and drink at least 6-8 glasses of water per day., Urinary Tract Infection (UTI) in Women: Care Instructions material was published Next Appt Details if not improving with PCP or reg follow up Reason: Insurance Providers Payer Name Payer Address Payer Phone Insured Name Patient Relationship to Insured Coverage Start Date Coverage End Date Subscriber Number Group Number AETNA [facility] [id number] [facility] [id number] Stefania Ac Self - patient is the insured [id number] 1 [id number] 01 MEDICATIONS ADMINISTERED Medication Instructions Date of Administration Dosag e DEPO PROVERA (150 MG/ML) Jan, 150 mg DEPO PROVERA (150 MG/ML) 30 Jul, 2016 150 mg DEPO PROVERA (150 MG/ML) 05 Jan, 2017 150 mg DEPO PROVERA (150 MG/ML) Jul, 150 mg DEPO PROVERA (150 MG/ML) May, 150 mg DEPO PROVERA (150 MG/ML) Apr, 150 mg DEPO PROVERA (150 MG/ML) Feb, 150 mg DEPO PROVERA (150 MG/ML) Apr, 150 mg DEPO PROVERA (150 MG/ML) Jul, 150 mg DEPO PROVERA (150 MG/ML) Nov, 150 mg DEPO PROVERA (150 MG/ML) Dec, 150 mg DEPO PROVERA (150 MG/ML) Feb, 150 mg DEPO PROVERA (150 MG/ML) Oct, 150 mg DEPO PROVERA (150 MG/ML) Oct, 150 mg
--- OUTSIDE RECORDS SUMMARY | 2023-04-23 19:07 | XMS REPORT ---
Author Author [facility] ter [facility] ter [facility] Address Unknown Phone Unavailable Care Team Providers Care Resident Manager Name Role Phone DOT SANCHEZ Unavailable PROBLEMS Type Condition ICD9-CM Code NOW78-NS Code Onset Dates Condition Status W/U Status Risk SNOMED Code Notes Problem Major depressive disorder with single episode, remission status unspecified F32.9 confirmed [id number] Problem BMI 37.0-37.9, adult Z68.37 confirmed 614333280 Problem Dysuria R30.0 confirmed 51057160 Problem Nausea R11.0 confirmed [id number] ALLERGIES Allergen (clinical drug ingredient) Drug/Non Drug Allergy documented on EMR Reaction Allergy Type Onset Date Status Tetanus Toxoid Adsorbed swelling, redness Drug Allergy Active ENCOUNTERS from 1997 to 2023-01-19 Encounter Location Date Provider Diagnosis [facility] IN [facility] [address] [facility] [id number] [address] Jan, DOT SANCHEZ Dysuria R30.0 IMMUNIZATIONS Vaccine Route Administration Date Status polio ipv (history) Unknown 1997 Administ ered polio ipv (history) Unknown 1997 Administ ered comvax hib/hep b (history) Unknown 1997 Administered infanrix dtap (history) Unknown 1997 Ad ministered hepatitis b pediatric (history) Unknown 1997 Administered hepatitis b pediatric (history) Unknown Apr 21 997 Administered mmr-II (history) Unknown September 14, 1998 Administe denita DTP Unknown 1997 Administered Novel Twlmtctht-S9E7-02, nasal Unknown Mar 25 09 Administered OPV [...] REFERRAL No Information REASON FOR VISIT Lab MEDICAL (GENERAL) HISTORY Type Description Date Medical History Depression Medical History 21 weeks Surgical History No know Surgical history Hospitalization History UTI(sepsis) 12/03/19 21 MENTAL STATUS No Information ASSESSMENTS Encounter Date Diagnosis Assessment Notes Treatment Notes Treatment Clinical Notes Jan, Dysuria (ICD-10 - R30.0) PLAN OF TREATMENT No Information Insurance Providers Payer Name Payer Address Payer Phone Insured Name Patient Relationship to Insured Coverage Start Date Coverage End Date Subscriber Number Group Number AETNA [address] [address] [facility] [id number] Stefania Ac Self - patient is the insured [id number] 1 [id number] 01 MEDICATIONS ADMINISTERED Medication Instructions Date of Administration Dosag e DEPO PROVERA (150 MG/ML) 18 May, 2015 150 mg DEPO PROVERA (150 MG/ML) 04 Feb, 2016 150 mg DEPO PROVERA (150 MG/ML) Jan, 150 mg DEPO PROVERA (150 MG/ML) Apr, 150 mg DEPO PROVERA (150 MG/ML) 20 Feb, 2015 150 mg DEPO PROVERA (150 MG/ML) Oct, 150 mg DEPO PROVERA (150 MG/ML) 17 Apr, 2018 150 mg DEPO PROVERA (150 MG/ML) Jul, 150 mg DEPO PROVERA (150 MG/ML) Dec, 150 mg DEPO PROVERA (150 MG/ML) Jan, 150 mg DEPO PROVERA (150 MG/ML) Oct, 150 mg DEPO PROVERA (150 MG/ML) Jul, 150 mg DEPO PROVERA (150 MG/ML) Jul, 150 mg DEPO PROVERA (150 MG/ML) Nov, 150 mg
[2023-04-23] MEDS ORDERED: D5 LR 1,000 ML IV SOLN 1,000 ML IV SCH (19:30)
[2023-04-23] MEDS ORDERED: NS IV 500 ML 500 ML IV SCH (19:30)
[2023-04-23] MEDS ORDERED: MINERAL OIL 30 ML UDC TOP PRN (19:30)
[2023-04-23] MEDS ORDERED: LACTATED RINGERS 1,000 ML 500 ML IV PRN (19:30)
[2023-04-23 19:45] VITALS: BP 132/79
[2023-04-23 20:34] LABS: BASOPHILS % (AUTO) 0 % (0-10); EOSINOPHILS # (AUTO) 0.1 10^3/uL (0.0-0.3); EOSINOPHILS % (AUTO) 1 % (0-10); HEMATOCRIT 33 % (35-52); HEMOGLOBIN 10.3 g/dL (11.5-16.0); LYMPHOCYTES # (AUTO) 1.5 10^3/uL (1.0-4.0); LYMPHOCYTES % (AUTO) 17 % (12-44); MEAN CORPUSCULAR HEMOGLOBIN 29 pg (25-34); MEAN CORPUSCULAR HGB CONC 32 g/dL (32-36); MEAN CORPUSCULAR VOLUME 92 fL (80-99); MEAN PLATELET VOLUME 11.4 fL (9.0-12.2); MONOCYTES # (AUTO) 0.5 10^3/uL (0.0-1.0); MONOCYTES % (AUTO) 5 % (0-12); NEUTROPHILS # (AUTO) 6.6 10^3/uL (1.8-7.8); NEUTROPHILS % (AUTO) 76 % (42-75); PLATELET COUNT 263 10^3/uL (130-400); WHITE BLOOD COUNT 8.7 10^3/uL (4.3-11.0)
[2023-04-23 21:45] VITALS: BP 121/63
[2023-04-23] MEDS ORDERED: CATHETER FLUSH 10 ML SYR IV SCH (22:00)
[2023-04-23 22:35] VITALS: BP 134/74
[2023-04-23 23:35] VITALS: BP 134/68
[2023-04-24] VITALS (43 sets, daily range): BP systolic 98–156; BP diastolic 46–97
[2023-04-24] MEDS ORDERED: HYDROmorphone INJECTION 2 MG/ML VIAL ONE (00:59)
[2023-04-24] MEDS ORDERED: HYDROmorphone INJECTION 2 MG/ML VIAL IV ONE (01:00)
[2023-04-24] MEDS ORDERED: fentaNYL 2 mcg/ml BUPIVA 0.125 100 ML ONE (04:11)
[2023-04-24] MEDS ORDERED: fentaNYL INJECTION 100 MCG/2 ML VIAL ONE (05:11)
[2023-04-24] MEDS ORDERED: BUPIVACAINE 0.25% 10 ML VIAL ONE (05:11)
[2023-04-24] MEDS: fentaNYL 2 mcg/ml BUPIVA 0.125 100 ML EPI SCH (05:30)
[2023-04-24] MEDS ORDERED: LACTATED RINGERS 1,000 ML 1,000 ML IV ONE ×2 (05:45)
[2023-04-24] MEDS ORDERED: fentaNYL INJECTION 100 MCG/2 ML VIAL INJ ONE (05:45)
[2023-04-24] MEDS ORDERED: NALOXONE 0.4 MG/ML 1 ML VIAL IV PRN ×2 (05:45→10:00)
[2023-04-24] MEDS ORDERED: ONDANSETRON INJECTION 4 MG/2 ML (SDV) IV PRN (05:45)
[2023-04-24] MEDS ORDERED: OXYTOCIN DRIP PRE-MIX 500 ML IV SCH ×2 (07:30→10:00)
[2023-04-24] MEDS ORDERED: CITRIC ACID/SODIUM CITRATE ORAL SOLN 30 ML ONE (08:36)
[2023-04-24] MEDS ORDERED: FAMOTIDINE INJ 20MG/2ML VIAL ONE (08:36)
[2023-04-24] MEDS ORDERED: METOCLOPRAMIDE INJ 10 MG/2 ML ONE (08:36)
[2023-04-24] MEDS ORDERED: NS (IVPB) 50 ML 50 ML ONE ×2 (08:37→09:56)
[2023-04-24] MEDS ORDERED: ceFAZolin INJECTION 2,000 MG ONE (08:37)
[2023-04-24] MEDS: LACTATED RINGERS 1,000 ML 1,000 ML IV PRN ×2 (08:40→09:18)
[2023-04-24] MEDS ORDERED: FAMOTIDINE INJ 20MG/2ML VIAL IV ONE (08:45)
[2023-04-24] MEDS ORDERED: CITRIC ACID/SODIUM CITRATE ORAL SOLN 30 ML PO ONE (08:45)
[2023-04-24] MEDS ORDERED: METOCLOPRAMIDE INJ 10 MG/2 ML IV ONE (08:45)
--- NOTE | 2023-04-24 09:44 | History & Physical-OB ---
OB - Chief Complaint & HPI Date/Time Date of Admission: Date of Admission: Apr 23, 2023 at 19:04 Date seen by a Provider: Apr 24, 2023 Time Seen by a Provider: 07:35 Chief Complaint/History OB-Reason for Admission/Chief: Induction of Labor Hx : 1 Hx Para: 0 Expected Date of Delivery: Apr 17, 2023 Gestational Age in Weeks: 41 Gestational Age in Days: 0 Indication for induction: post dates Admission Nurse Assessment Rev: Yes History of Labs see prenatals Allergies and Home Medications Allergies Coded Allergies: Tetanus Vaccines and Toxoid (Verified Allergy, Intermediate, Rash, 04/23/23) Patient Home Medication List Home Medication List Reviewed: Yes Cefdinir (Cefdinir) 300 Mg Capsule, 300 MG PO BID Prescribed by: ANDREA BROWNE on 12/03/20 0048 OB - History Hx of Present Care: Yes Ultrasounds: Normal mid trimester US Obstetrical Complications: None Medical Complications: None Delivery History Hx Blood Disorders: No Adverse Rxn to Tranfusion: No Patient Past Medical History nc Social History/Family History 2nd Hand Smoke Exposure: No Immunizations Influenza Vaccine Up-to-Date: No; Not Current Hepatitis A: Yes Hepatitis B: Yes Tetanus Booster (TDap): Unknown OB - Admission Exam Physical Exam Vitals: Vital Signs 04/24/23 04/24/23 04/24/23 05:50 06:10 06:55 Temp 36.7 Pulse 102 Resp 18 B/P (MAP) 129/73 (91) Pulse Ox 99 HEENT: NCAT Heart: Rhythm Normal Lungs: Clear Abdomen: Gravid Extremities: Normal Reflexes: Normal Cervical Dilatation: 1cm Effacement: 75% Station: -2 Membranes: Intact Amniotic Fluid: Clear Heart Rate: 130's Accelerations: Accelerations Present Decelerations: No Decelerations Short Term Variability: Present Fci Variability: Average (6-25) Contractions on Admission: 6-10 Minutes Apart Intensity: Mild Labs Laboratory Tests Test 04/23/23 19:55 Range/Units White Blood Count 8.7 4.3-11.0 10^3/uL Red Blood Count 3.56 L 3.80-5.11 10^6/uL Hemoglobin 10.3 L 11.5-16.0 g/dL Hematocrit 33 L 35-52 % Mean Corpuscular Volume 92 80-99 fL Mean Corpuscular Hemoglobin 29 25-34 pg Mean Corpuscular Hemoglobin Concent 32 32-36 g/dL Red Cell Distribution Width 15.6 H 10.0-14.5 % Platelet Count 263 130-400 10^3/uL Mean Platelet Volume 11.4 9.0-12.2 fL Immature Granulocyte % (Auto) 1 % Neutrophils (%) (Auto) 76 H 42-75 % Lymphocytes (%) (Auto) 17 12-44 % Monocytes (%) (Auto) 5 0-12 % Eosinophils (%) (Auto) 1 0-10 % Basophils (%) (Auto) 0 0-10 % Neutrophils # (Auto) 6.6 1.8-7.8 10^3/uL Lymphocytes # (Auto) 1.5 1.0-4.0 10^3/uL Monocytes # (Auto) 0.5 0.0-1.0 10^3/uL Eosinophils # (Auto) 0.1 0.0-0.3 10^3/uL Basophils # (Auto) 0.0 0.0-0.1 10^3/uL Immature Granulocyte # (Auto) 0.1 0.0-0.1 10^3/uL Syphilis Total Antibody Negative Negative OB - Assessment/Plan/Diagnosis Assessment Assessment: induction of labor Admission Dx 28 yo @ 41 weeks Post dates induction Rubella equivocal GBS neg Admission Status: Inpatient Order (span 2 midnights) Reason for Inpatient Admission: iol at 41 weeks Plan Plan: Induction Induction Method: per Misoprostol Protocol ABDOUL ASCENCIO DO Apr 24, 2023 09:44
[2023-04-24] MEDS ORDERED: BUPIVACAINE 0.5% 30 ML VIAL ONE (09:45)
[2023-04-24] MEDS ORDERED: LIDOCAINE PF 2% 5 ML VIAL ONE (09:45)
--- NOTE | 2023-04-24 09:49 | Progress Note ---
Standard Progress Note Progress Notes/Assess & Plan Date Seen by a Provider: Apr 24, 2023 Time Seen by a Provider: 09:30 Progress/Assessment & Plan Patient admitted for IOL last night. A single dose of cytotec given PO, afterwhich she has SROM occur at 2200 last night. Due to contractions and cat 2 tracing no further cytotec was given. She received an epidural this am, followed by multiple heart rate decelerations. She progressed to 2 cm, but anytime further augmentation was attempted with pitocin heart rate variable and late decelerations continued. Due to this and concerns well being, intolerance of labor discussed. I spoke with the patient about proceeding with PLTCS. Risk reviewed, vs continuing labor attempt being remote from delivery. It was agree upon to proceed, consent obtained, and OR crew notified. ABDOUL ASCENCIO DO Apr 24, 2023 09:49
[2023-04-24] MEDS ORDERED: NS (IVPB) 100 ML 0 ML ONE (09:55)
[2023-04-24] MEDS ORDERED: AZITHROMYCIN INJECTION 500 MG VIAL ONE (09:55)
[2023-04-24] MEDS ORDERED: ACHD5005 PO (09:57)
[2023-04-24] MEDS ORDERED: DOCU100C37 PO (09:57)
[2023-04-24] MEDS ORDERED: IBUP-844 PO (09:57)
--- NOTE | 2023-04-24 09:57 | Discharge Inst-Women's Service ---
Discharge Inst-Women's Serv Depart Medication/Instructions New, Converted or Re-Newed RX: Transmitted to Pharmacy Final Diagnosis POD 2 PLTCS Problems Reviewed?: Yes Consults/Follow Up Additional Follow Up: Yes Orders/Referrals Dr. Ulrich in 7-10 days and in 6 weeks Activity Activity: Activity as Tolerated Driving Instructions: No Driving for 1 Week NO SMOKING: NO SMOKING Nothing Inside Vagina: No Douching, No [place], No Tampons Diet Discharge Diet: No Restrictions Symptoms to Report to : Bleeding Excessive, Pain Increased, Fever Over 101 Degrees F, Vaginal Bleeding Increase, Questions/Concerns For Any Problems or Questions: Contact Your Physician Skin/Wound Care Infection Signs and Symptoms: Increased Redness, Foul Odor of Wound, Increased Drainage, Skin Itchy or Has a Rash, Increased Swelling, Temperature Above 101 F Operative Area Clean and Dry: Keep Incision Clean/Dry Stitches/[place]/Dermabond: Dermabond, Care of Stitches Bathing Instructions: ABDOUL Sanders DO Apr 24, 2023 09:57
[2023-04-24] MEDS ORDERED: ONDANSETRON INJECTION 4 MG/2 ML (SDV) IVP PRN (10:00)
[2023-04-24] MEDS ORDERED: MEASLES, MUMPS, RUBELLA VACCINE (MMR) SC SCH (10:00)
[2023-04-24] MEDS ORDERED: AZITHROMYCIN INJECTION 500 MG in NS (IVPB) 250 ML 250 ML IV ONE (10:00)
[2023-04-24] MEDS ORDERED: ONDANSETRON INJECTION 4 MG/2 ML (SDV) ONE (10:21)
[2023-04-24] MEDS ORDERED: KETOROLAC INJ 30 MG/ML VIAL ONE (10:21)
[2023-04-24] MEDS ORDERED: PHENYLEPHRINE 100 MCG/ML 10 ML (ANESTHESIA) SYR ONE (10:21)
[2023-04-24] MEDS: KETOROLAC INJ 30 MG/ML VIAL IV SCH ×2 (10:30→16:23)
[2023-04-24] MEDS ORDERED: ceFAZolin INJECTION 2,000 MG in NS (IVPB) 50 ML 50 ML IV ONE (10:30)
[2023-04-24] MEDS: HYDROcodone/ACETAMINOPHEN 5 MG/325 MG TABLET PO PRN ×2 (13:06→20:19)
[2023-04-24] MEDS ORDERED: CATHETER FLUSH 10 ML SYR IV SCH (14:00)
--- NOTE | 2023-04-24 16:23 | OPERATIVE REPORT ---
PREOPERATIVE DIAGNOSES: 1. A 28-year-old at 41 weeks' gestation. 2. intolerance to labor. POSTOPERATIVE DIAGNOSES: 1. A 28-year-old at 41 weeks' gestation. 2. intolerance to labor. PROCEDURE: Primary low-transverse section. SURGEON: Lorenzo Ascencio DO ANESTHESIA: Epidural, which was bolused. ESTIMATED BLOOD LOSS: 500 mL. URINE OUTPUT: 250 mL clear at the end of the procedure. FLUIDS: 1000 mL lactated Ringer's solution. FINDINGS: A live male weighing 8 pounds 14 ounces, Apgars of 8 and 9. Grossly normal appearing uterus, bilateral fallopian tubes and ovaries. SPECIMEN SENT: Placenta. INDICATIONS FOR PROCEDURE: This is a 28-year-old female patient who was brought in for induction of labor. Her labor course was complicated by intolerance of labor. Please see my preoperative note for details pertaining to this. Once the patient was consented for the procedure, she was taken to the operating room where epidural analgesia was bolused and found to be adequate. She was placed in a supine position with leftward tilt, prepped and draped in normal sterile fashion. A timeout was performed. Anesthesia was tested. I then made a Pfannenstiel skin incision with a knife and carried to underlying fascia using Bovie cautery. The fascial incision extended laterally using Bovie cautery. The superior aspect of fascial incision was then grasped with Renuka clamps, tented up and dissected off the underlying rectus muscles. The inferior aspect of the fascial incision was then grasped with Renuka clamps, tented up and dissected off the underlying rectus muscles. Rectus muscles were dissected sharply down the midline, which exposed the peritoneum, which I entered bluntly, extended using blunt traction. Donte ring retractor was placed in the peritoneal incision, which offers excellent lateral sidewall retraction. I identified lower uterine segment and was found to be thinned out. I made a low transverse incision through the vesicouterine peritoneum and bluntly dissected off the lower uterine segment, creating a bladder flap. I then proceeded with myotomy until membranes were visualized, at which point I extended the uterine incision laterally and superiorly using bandage scissors. Amniotomy was performed. In the process of doing this, clear fluid was still noted. The was found in vertex presentation. The 's head was elevated up to the incision, and was delivered through the incision. The nares and oropharynx were bulb suctioned. Nuchal cord was reduced x1. Anterior and posterior shoulders were delivered. The infant was brought to the operative field where cords were doubly clamped and cut and infant was handed off to waiting nurses in attendance. Cord blood was collected. Three-vessel cord intact placenta was delivered spontaneously thereafter. IV Pitocin was initiated to facilitate uterine contraction. Uterine fundus confirmed by manual massage. The uterus was exteriorized and cleared of all endometrial clots and debris. I then proceeded with closing the uterine incision using 0 Vicryl suture in a running locked fashion. Second layer of imbricating 0 Monocryl was placed. Excellent hemostasis was noted after doing this. I then placed the uterus back in the pelvis and copiously irrigated the pelvis using normal saline. Once again, there was no active bleeding noted from any of my dissection planes. I placed Interceed antiadhesive over my low transverse incision. I removed the Donte retractor and then proceeded with closing the peritoneum using 3-0 Vicryl suture in a running fashion. The rectus muscles were reapproximated using 3-0 Vicryl suture in interrupted fashion. Fascia was reapproximated using 0 Vicryl suture in a running fashion. Subcutaneous tissue was reapproximated using 3-0 plain in interrupted subcutaneous stitch and skin was reapproximated using 4-0 Monocryl running subcuticular. Dermabond was applied to incision, sterile dressing with adhesive white tape. The patient tolerated the procedure well and was taken to recovery in stable condition. Lap and sponge counts were correct at the end of the procedure. Instrument counts were correct as well. Two grams of Ancef, 500 mg of azithromycin are given preoperatively for infection prophylaxis. Job ID: [id number] DocumentID: [id number] Dictated Date: 04/24/2023 10:58:01 Diamond Assorter Date: 04/24/2023 16:21:00 Dictated By: LORENZO ASCENCIO DO
[2023-04-24] MEDS: METOCLOPRAMIDE 10 MG TABLET PO SCH ×2 (18:40→20:15)
[2023-04-24] MEDS: DOCUSATE SODIUM 100 MG CAPSULE PO SCH (20:18)
[2023-04-25 00:54] VITALS: BP 118/68
[2023-04-25] MEDS: KETOROLAC INJ 30 MG/ML VIAL IV SCH ×2 (00:54→06:28)
[2023-04-25 04:59] VITALS: BP 115/70
[2023-04-25] MEDS: HYDROcodone/ACETAMINOPHEN 5 MG/325 MG TABLET PO PRN ×3 (04:59→20:06)
[2023-04-25] MEDS: METOCLOPRAMIDE 10 MG TABLET PO SCH ×5 (04:59→23:19)
[2023-04-25 05:56] LABS: BASOPHILS % (AUTO) 0 % (0-10); EOSINOPHILS % (AUTO) 1 % (0-10); HEMATOCRIT 28 % (35-52); HEMOGLOBIN 8.7 g/dL (11.5-16.0); LYMPHOCYTES # (AUTO) 1.7 10^3/uL (1.0-4.0); LYMPHOCYTES % (AUTO) 21 % (12-44); MEAN CORPUSCULAR HEMOGLOBIN 29 pg (25-34); MEAN CORPUSCULAR HGB CONC 32 g/dL (32-36); MEAN CORPUSCULAR VOLUME 92 fL (80-99); MEAN PLATELET VOLUME 11.2 fL (9.0-12.2); MONOCYTES # (AUTO) 0.4 10^3/uL (0.0-1.0); MONOCYTES % (AUTO) 5 % (0-12); NEUTROPHILS # (AUTO) 5.7 10^3/uL (1.8-7.8); NEUTROPHILS % (AUTO) 72 % (42-75); PLATELET COUNT 204 10^3/uL (130-400); WHITE BLOOD COUNT 7.9 10^3/uL (4.3-11.0)
--- NOTE | 2023-04-25 07:59 | Postpartum Progress Note ---
VICKYMILDRED Karlie 04/25/23 0759: Note Note Day # 1 Subjective: Patient is without complaints. Ambulating, voiding. Tolerating a regular diet without nausea or vomiting. Normal lochia. Pain is well controlled with oral pain medications. . Denies chest pain or shortness of breath. Objective: Vital Signs 04/25/23 04:59 Temp 36.6 Pulse 87 Resp 18 B/P (MAP) 115/70 (85) Pulse Ox 96 O2 Delivery Room Air Laboratory Tests Test 04/23/23 19:55 04/25/23 05:15 Range/Units White Blood Count 8.7 7.9 4.3-11.0 10^3/uL Red Blood Count 3.56 L 2.99 L 3.80-5.11 10^6/uL Hemoglobin 10.3 L 8.7 L 11.5-16.0 g/dL Hematocrit 33 L 28 L 35-52 % Mean Corpuscular Volume 92 92 80-99 fL Mean Corpuscular Hemoglobin 29 29 25-34 pg Mean Corpuscular Hemoglobin Concent 32 32 32-36 g/dL Red Cell Distribution Width 15.6 H 15.6 H 10.0-14.5 % Platelet Count 263 204 130-400 10^3/uL Mean Platelet Volume 11.4 11.2 9.0-12.2 fL Immature Granulocyte % (Auto) 1 1 % Neutrophils (%) (Auto) 76 H 72 42-75 % Lymphocytes (%) (Auto) 17 21 12-44 % Monocytes (%) (Auto) 5 5 0-12 % Eosinophils (%) (Auto) 1 1 0-10 % Basophils (%) (Auto) 0 0 0-10 % Neutrophils # (Auto) 6.6 5.7 1.8-7.8 10^3/uL Lymphocytes # (Auto) 1.5 1.7 1.0-4.0 10^3/uL Monocytes # (Auto) 0.5 0.4 0.0-1.0 10^3/uL Eosinophils # (Auto) 0.1 0.0 0.0-0.3 10^3/uL Basophils # (Auto) 0.0 0.0 0.0-0.1 10^3/uL Immature Granulocyte # (Auto) 0.1 0.1 0.0-0.1 10^3/uL Syphilis Total Antibody Negative Negative Physical Exam: General - Alert and oriented, no apparent distress Abdomen - Soft, appropriately tender to palpation, non-distended, fundus firm at umbilicus Extremities - no edema, negative Ross's bilaterally, SCDs in place Assessment: Post- day # 1, status post delivery. Recovering well, hemodynamically stable IOL at 41 weeks Post dates induction Late and Variable decelerations on FHM Rubella equivocal GBS neg Plan: Routine care. Encourage breast feeding. Encourage ambulation. Ferrous sulfate supplementation. Anticipate discharge tomorrow Vitals - Labs Vital Signs - I&O Vital Signs Date Time Temp Pulse Resp B/P (MAP) Pulse Ox O2 Delivery O2 Flow Rate FiO2 04/25/23 04:59 36.6 87 18 115/70 (85) 96 Room Air 04/25/23 00:54 36.7 97 18 118/68 (85) 98 Room Air 04/24/23 20:19 36.7 100 18 114/61 (78) 96 Room Air 04/24/23 16:26 37.5 98 18 127/65 (85) 96 Room Air 04/24/23 13:02 37.4 103 18 120/56 (77) 97 Room Air 04/24/23 11:48 37.9 90 18 130/68 (88) 97 Room Air 04/24/23 11:35 36.7 17 132/76 (94) 98 Room Air 04/24/23 11:33 Room Air 04/24/23 11:30 12 98/46 (63) 98 Room Air 04/24/23 11:25 Room Air 04/24/23 11:19 18 127/58 (81) 98 Room Air 04/24/23 11:16 Room Air 04/24/23 11:10 10 101/50 (67) 99 Room Air 04/24/23 11:00 Room Air 04/24/23 11:00 15 140/68 (92) 99 Room Air 04/24/23 10:50 30 102/67 (79) 99 Room Air 04/24/23 10:44 Room Air 04/24/23 10:44 37.1 18 106/50 (68) 98 Room Air 04/24/23 09:51 38.0 04/24/23 09:46 18 122/71 (88) 04/24/23 09:43 102 18 127/72 (90) 04/24/23 09:40 38.1 96 18 124/71 (88) 04/24/23 09:38 96 18 130/69 (89) 04/24/23 09:26 99 18 125/64 (84) 04/24/23 09:11 89 18 124/63 (83) 04/24/23 08:56 37.2 94 18 117/58 (77) 04/24/23 08:43 120 18 124/77 (93) 04/24/23 08:26 92 18 120/67 (84) 04/24/23 08:11 97 18 115/68 (84) I & O 04/25/23 06:59 Intake Total 1900 ml Output Total 1465 ml Balance 435 ml Labs Laboratory Tests 04/25/23 05:15: White Blood Count 7.9, Red Blood Count 2.99L, Hemoglobin 8.7L, Hematocrit 28L, Mean Corpuscular Volume 92, Mean Corpuscular Hemoglobin 29, Mean Corpuscular Hemoglobin Concent 32, Red Cell Distribution Width 15.6H, Platelet Count 204, Mean Platelet Volume 11.2, Immature Granulocyte % (Auto) 1, Neutrophils (%) (Auto) 72, Lymphocytes (%) (Auto) 21, Monocytes (%) (Auto) 5, Eosinophils (%) (Auto) 1, Basophils (%) (Auto) 0, Neutrophils # (Auto) 5.7, Lymphocytes # (Auto) 1.7, Monocytes # (Auto) 0.4, Eosinophils # (Auto) 0.0, Basophils # (Auto) 0.0, Immature Granulocyte # (Auto) 0.1 LORENZO ASCENCIO DO 04/25/23 0844: Note Note Diagnosis addition: Acute blood loss anemia Verification and Attestation of Medical Student E/M Service A medical student performed and documented this service in my presence. I reviewed and verified all information documented by the medical student and made modifications to such information, when appropriate. I personally performed the physical exam and medical decision making. Lorenzo Ascencio, Apr 25, 2023,08:44 MILDRED PERRY Apr 25, 2023 07:59 LORENZO ASCENCIO DO Apr 25, 2023 08:44
[2023-04-25 09:40] VITALS: BP 108/57
[2023-04-25] MEDS: IBUPROFEN 600 MG TABLET PO SCH ×3 (09:40→23:20)
[2023-04-25] MEDS: DOCUSATE SODIUM 100 MG CAPSULE PO SCH ×2 (09:40→20:06)
--- NOTE | 2023-04-25 11:50 | Anesthesia-Regional Post-Op ---
Regional Patient Condition Mental Status: Alert, Oriented x3 Circulation: Same as Pre-Op Headache: Absent Sensation: Full Recovery Motor Block: Absent Post Op Complications Complications None Follow Up Care/Instructions Patient Instructions None needed. Anesthesia/Patient Condition Patient is doing well, no complaints, stable vital signs, no apparent adverse anesthesia problems. No complications reported per nursing. MAGNUS URBINA CRNA Apr 25, 2023 11:50
[2023-04-25 14:09] VITALS: BP 129/70
[2023-04-25 20:00] VITALS: BP 127/74
[2023-04-26 01:36] VITALS: BP 120/66
[2023-04-26] MEDS: HYDROcodone/ACETAMINOPHEN 5 MG/325 MG TABLET PO PRN ×2 (01:36→08:22)
[2023-04-26] MEDS: IBUPROFEN 600 MG TABLET PO SCH (04:42)
[2023-04-26] MEDS: METOCLOPRAMIDE 10 MG TABLET PO SCH (04:42)
[2023-04-26] MEDS: fentaNYL 2 mcg/ml BUPIVA 0.125 100 ML EPI SCH (05:54)
--- NOTE | 2023-04-26 08:15 | Postpartum Progress Note ---
Post Op Post-operative Day #2 Subjective: Patient is without complaints. Ambulating, voiding after mckeon removed. Tolerating a regular diet without nausea or vomiting. Normal lochia. Pain is well controlled with oral pain medications. Passing flatus. breast feeding. [] Objective: VSS AF Physical Exam: General - Alert and oriented, no apparent distress Developed maternal and morbidity during the . Has recognized the absence ofversus symmetrical no erythema or edema or engorgement Abdomen - Soft, appropriately tender to palpation, non-distended, fundus firm at umbilicus Incision - clean, dry and intact; no erythema or induration, no drainage Extremities - no edema, negative Ross's bilaterally Assessment: [] post-operative day # 2, status post LTCS. Recovering well, hemodynamically stable Plan: Routine post-operative care. Encourage breast feeding. Encourage ambulation. VTE prophylaxis: SCDs. Ferrous sulfate supplementation. Plan for discharge [] Vitals - Labs Vital Signs - I&O Vital Signs Date Time Temp Pulse Resp B/P (MAP) Pulse Ox O2 Delivery O2 Flow Rate FiO2 04/26/23 01:36 36.0 96 18 120/66 (84) 97 Room Air 04/25/23 20:00 36.8 101 18 127/74 (91) 96 Room Air 04/25/23 14:09 36.7 97 18 129/70 (89) Room Air 04/25/23 09:40 36.5 108 18 108/57 (74) 97 Room Air INDIRA SERVIN DO Apr 26, 2023 08:15
[2023-04-26 08:20] VITALS: BP 121/76
[2023-04-26] MEDS: DOCUSATE SODIUM 100 MG CAPSULE PO SCH (08:22)
== END 2023-04-26 11:50 | disposition home or self-care (01) | DRG 787 ==
LOC: LDRP 19:04
PROVIDERS: ADMIT Obstetrics & Gynecology; ATTEND Obstetrics & Gynecology
PROC: 10D00Z1 Extraction of Products of Conception, Low, Open Approach (ICD-10-PCS; principal; 2023-04-24 09:50)
DX: O48.0 Post-term pregnancy (principal); D62 Acute posthemorrhagic anemia; Z3A.41 41 weeks gestation of pregnancy; Z37.0 Single live birth; O76 Abnormality in fetal heart rate and rhythm complicating labor and delivery; O90.81 Anemia of the puerperium; O62.0 Primary inadequate contractions
CPT/HCPCS: 36415; 85025; 86780; 86850; 86900; 86901; 88307; 94664